=== PATIENT | female | born 1960 | race Caucasian/White ===

== ENCOUNTER 2020-10-11 00:52 | Observation (INO) ==
[2020-10-11] MEDS ORDERED: Naloxone 0.4 MG/ML INJ IVP PRN (03:11)
[2020-10-11] MEDS ORDERED: Ondansetron 4 MG/2 ML VIAL IVP PRN (03:11)
[2020-10-11] MEDS ORDERED: Morphine Sulfate 2 MG/ML SYRINGE IVP PRN (04:00)
[2020-10-11] MEDS ORDERED: Nitroprusside 50 MG in D5% in Water 250 ML IVC SCH (04:30)
[2020-10-11] MEDS ORDERED: *HR* Heparin 5,000 UNIT/ML VIAL IVP ONE (04:32)
[2020-10-11] MEDS ORDERED: *HR* Heparin 5,000 UNIT/ML VIAL IVP PRN ×2 (04:32)
[2020-10-11] MEDS ORDERED: Heparin 25,000UNIT/250ML 1/2NS 25,000 UNIT/250 ML IV.SOLN IVC SCH ×2 (04:45→07:15)
[2020-10-11] MEDS ORDERED: *HR* Digoxin 0.125 MG TABLET PO SCH (05:00)
[2020-10-11] MEDS ORDERED: Perflutren Lipid Microsphere 1.3 ML in 0.9 % Sodium Chloride 8.7 ML IVP PRN (05:02)
[2020-10-11] MEDS ORDERED: Dextrose Gel 15 GM/37.5 ML TUBE PO PRN ×2 (05:07)
[2020-10-11] MEDS ORDERED: *HR* Dextrose 50 % in Water (Vial) 50 ML VIAL IVP PRN (05:07)
[2020-10-11] MEDS ORDERED: D5% in Water 1,000 ML IVC PRN (05:07)
[2020-10-11 06:34] LABS: Hematocrit 33.1 % (35.3-44.9); Hemoglobin 11.2 g/dL (11.5-15.4); Mean Corpuscular HGB Conc 33.8 g/dL (31.6-35.5); Mean Corpuscular Hemoglobin 30.8 pg (28.0-33.3); Mean Corpuscular Volume 90.9 fL (83.0-100.0); Mean Platelet Volume 9.9 fL (9.4-12.4); Platelet Count 219 K/mcL (140-400); Red Blood Count 3.64 M/mcL (3.82-4.97); Red Cell Distribution Width 15.5 % (11.5-14.5); White Blood Count 8.1 K/mcL (4.3-11.1)
[2020-10-11 06:51] LABS: INR 1.4
[2020-10-11 06:54] LABS: Activated Partial Thrombo Time 35.3 Seconds (26.0-36.0)
[2020-10-11 06:58] LABS: Heparin anti-factor XA UFH 1.83 IU/mL (0.30-0.70)
[2020-10-11 07:27] LABS: Alanine Aminotransferase 9 Units/L (7-52); Albumin 3.9 g/dL (3.5-5.7); Albumin/Globulin Ratio 1.6 (1.1-2.2); Alkaline Phosphatase 93 Units/L (34-104); Aspartate Amino Transferase 12 Units/L (13-39); BUN/Creatinine Ratio 32 (6-26); Bilirubin,Total 0.6 mg/dL (0.3-1.0); Blood Urea Nitrogen 20 mg/dL (6-20); Carbon Dioxide 29 mEq/L (23-29); Chloride 96 mEq/L (98-107); Chol/HDL Ratio 4.4 (0-4.9); Cholesterol 129 mg/dL (< 200); Globulin 2.5 g/dL (2.4-3.5); Glucose 159 mg/dL (70-105); HDL Cholesterol 29 mg/dL (40-59); LDL Cholesterol,Calculated 71 mg/dL (< 100); Lipase 19 Units/L (11-82); Osmolality,Calculated 288 (280-300); Potassium 3.7 mEq/L (3.5-5.1); Sodium 136 mEq/L (136-145); Total Protein 6.4 g/dL (6.4-8.9); Triglycerides 143 mg/dL (< 150); Troponin I < 0.03 ng/mL (< 0.04); eGFR For African Americans > 60 (> 60); eGFR For Non-African Americans > 60 (> 60)
[2020-10-11] MEDS: Aspirin Enteric Coated 81 MG Tablet PO SCH (09:32)
[2020-10-11] MEDS: Magnesium Oxide 400 MG TABLET PO SCH (09:32)
[2020-10-11] MEDS: *HR* Amiodarone 200 MG TABLET PO SCH (09:34)
[2020-10-11] MEDS: Metoprolol XL (24 HR) Succ 25 MG TAB.ER.24H PO SCH (09:34)
[2020-10-11] MEDS: Sacubitril/Valsartan 24/26 MG 1 TABLET PO SCH ×2 (09:34→21:26)
[2020-10-11] MEDS: Furosemide 40 MG TABLET PO SCH ×2 (09:34→21:26)
[2020-10-11] MEDS: Insulin LISPRO 300 UNITS/3 ML VIAL SUBQ SCH ×4 (10:18→21:27)
[2020-10-11 10:35] LABS: Bacteria,Urine Few per hpf (None-Few); Bilirubin,Urine Negative (Negative); Blood,Urine Small (Negative); Clarity,Urine Turbid (Clear); Color,Urine Yellow (Yellow); Glucose,Urine (UA) Normal (Normal); Ketones,Urine Negative (Negative); Leukocyte Esterase,Urine Large (Negative); Nitrite,Urine Negative (Negative); PH,Urine 5.5 pH Units (5.0-8.0); Protein,Urine Trace mg/dL (Neg-Trace); Specific Gravity,Urine 1.015 (1.010-1.025); Squamous Epithelial Cell,Urine Few per hpf (None-Few); Transitional Epi Cells,Urine Few per hpf (None-Few); Urobilinogen,Urine Normal (Normal); WBC,Urine TNTC per hpf (0-3)
[2020-10-11 11:50] LABS: Estimated Average Glucose 197 mg/dl; Hemoglobin A1C 8.5 %
[2020-10-11] MEDS ORDERED: Apixaban 5 MG TABLET PO SCH (21:00)
[2020-10-11] MEDS ORDERED: Insulin DETEMIR 100 UNIT/ML X5UNITS SUBQ SCH (21:00)
[2020-10-11] MEDS: Apixaban 5 MG TABLET PO SCH (21:27)
[2020-10-11] MEDS: QUEtiapine Fumarate 25 MG TABLET PO SCH (21:27)
[2020-10-12] MEDS: *HR* Amiodarone 200 MG TABLET PO SCH (08:53)
[2020-10-12] MEDS: Metoprolol XL (24 HR) Succ 25 MG TAB.ER.24H PO SCH (08:54)
[2020-10-12] MEDS: Sacubitril/Valsartan 24/26 MG 1 TABLET PO SCH ×2 (08:54→20:24)
[2020-10-12] MEDS: Aspirin Enteric Coated 81 MG Tablet PO SCH (08:54)
[2020-10-12] MEDS: Apixaban 5 MG TABLET PO SCH ×2 (08:54→20:25)
[2020-10-12] MEDS: Magnesium Oxide 400 MG TABLET PO SCH (08:54)
[2020-10-12] MEDS: Insulin LISPRO 300 UNITS/3 ML VIAL SUBQ SCH ×4 (08:55→20:26)
[2020-10-12] MEDS: Insulin DETEMIR 100 UNIT/ML X5UNITS SUBQ SCH ×2 (08:56→20:28)
[2020-10-12] MEDS: Fluticasone Propionate Nasal 50 MCG/SPRAY BOTTLE NS SCH (08:57)
[2020-10-12] MEDS: Furosemide 40 MG TABLET PO SCH ×2 (10:09→20:24)
[2020-10-12] MEDS: QUEtiapine Fumarate 25 MG TABLET PO SCH (20:25)
[2020-10-13 02:28] LABS: BUN/Creatinine Ratio 36 (6-26); Blood Urea Nitrogen 26 mg/dL (6-20); Calcium 9.1 mg/dL (8.6-10.3); Carbon Dioxide 28 mEq/L (23-29); Chloride 101 mEq/L (98-107); Glucose 300 mg/dL (70-105); Magnesium 1.6 mg/dL (1.6-2.6); Osmolality,Calculated 306 (280-300); Potassium 3.8 mEq/L (3.5-5.1); Sodium 140 mEq/L (136-145); eGFR For African Americans > 60 (> 60); eGFR For Non-African Americans > 60 (> 60)
[2020-10-13] MEDS: *HR* Amiodarone 200 MG TABLET PO SCH (08:15)
[2020-10-13] MEDS: Metoprolol XL (24 HR) Succ 25 MG TAB.ER.24H PO SCH (08:15)
[2020-10-13] MEDS: Aspirin Enteric Coated 81 MG Tablet PO SCH (08:15)
[2020-10-13] MEDS: Sacubitril/Valsartan 24/26 MG 1 TABLET PO SCH (08:15)
[2020-10-13] MEDS: Furosemide 40 MG TABLET PO SCH (08:15)
[2020-10-13] MEDS: Apixaban 5 MG TABLET PO SCH (08:15)
[2020-10-13] MEDS: Magnesium Oxide 400 MG TABLET PO SCH (08:17)
[2020-10-13] MEDS: Fluticasone Propionate Nasal 50 MCG/SPRAY BOTTLE NS SCH (08:19)
[2020-10-13] MEDS: Insulin LISPRO 300 UNITS/3 ML VIAL SUBQ SCH ×2 (08:19→11:21)
[2020-10-13] MEDS: Insulin DETEMIR 100 UNIT/ML X5UNITS SUBQ SCH (08:19)
[2020-10-13 10:33] VITALS: BP 118/63; PULSE 81; TEMP 97.8; O2SAT 98
== END 2020-10-13 14:32 ==
LOC: 2NENU → SUATTDRO 02:51
PROVIDERS: ADMIT Internal Medicine; ATTEND Family Medicine